=== PATIENT | female | born 1935 | race Caucasian/White ===

== ENCOUNTER 2017-12-04 07:32 | Observation (INO) ==
[2017-12-06 12:21] VITALS: BP 128/71
== END 2017-12-06 14:25 | disposition home or self-care (01) ==
LOC: N.4E 07:32 → N.GILAB 07:32 → N.4E 14:45
PROVIDERS: ADMIT Internal Medicine Gastroenterology; ATTEND Internal Medicine Gastroenterology

== ENCOUNTER 2017-12-21 08:59 | Inpatient (IN) ==
[2017-12-21] MEDS ORDERED: HALOPERIDOL 5 MG/ML AMP IM STA (09:30)
[2017-12-21] MEDS ORDERED: LORazepam 2 MG/1 ML VIAL ONE (09:31)
[2017-12-21] MEDS ORDERED: HALOPERIDOL 5 MG/ML AMP ONE (09:31)
[2017-12-21] MEDS ORDERED: SODIUM CHLORIDE 0.9% 500 ML IV STA (09:40)
[2017-12-21] MEDS ORDERED: HALOPERIDOL 5 MG/ML AMP IV STA (09:40)
[2017-12-21] MEDS ORDERED: LORazepam 2 MG/1 ML VIAL IV STA ×2 (09:40→10:00)
[2017-12-21 10:33] LABS: Basophils % 0.3 % (0.0-0.8); Eosinophils % 0.2 % (0.00-10.9); Hematocrit 37.1 VOL% (35.7-47.0); Hemoglobin 12.4 GM/DL (12.0-16.0); Immature Granulocytes % 0.5 %; Immature Granulocytes Absolute 0.06 #; Lymphocytes # 1.1 10*3/uL (1.4-4.0); Lymphocytes % 9.8 % (21.3-54.2); Mean Corpuscular HGB Conc 33.4 GM/DL (32-36); Mean Corpuscular Hemoglobin 29 PG (27-34); Mean Corpuscular Volume 87.5 FL (87-102); Monocytes # 0.9 10*3/uL (0.11-0.8); Monocytes % 7.7 % (1.7-12.7); Neutrophils # 9.4 10*3/uL (1.4-7.4); Neutrophils % 81.5 % (38.7-73.9); Platelet Count 232 T/CUMM (130-400); Red Blood Count 4.24 MC/CUMM (3.8-5.5); Red Cell Distribution Width 13.4 % (9.3-17.3); White Blood Count 11.6 T/CUMM (4-12)
[2017-12-21 10:36] LABS: ABG Base Excess -0.5 MMOL/L (-2.5-2.5); ABG Oxygen Saturation 98.9 % (95-100); ABG PCO2 35.1 MM HG (35-48); ABG PH 7.429 (7.35-7.45); ABG TCO2 20.6 MMOL/L (23-27); Allen Test Positive; Pt O2 Delivery Device Room Air
[2017-12-21] MEDS ORDERED: ZIPRASIDONE 20 MG/1 ML VIAL IM ONE ×2 (10:40→10:48)
[2017-12-21 10:43] LABS: INR 0.9
[2017-12-21 10:59] LABS: Ammonia 26 UMOL/L (11-32)
[2017-12-21 11:11] LABS: Lactic Acid 3.4 MMOL/L (0.4-2.0)
[2017-12-21 11:20] LABS: Apearance,Urine CLEAR (Clear); Bacteria,Urine Occasional /HPF (Few); Bilirubin,Urine Negative (Negative); Blood, Urine Negative (Negative); Glucose,Urine (UA) Negative (Negative); Granular Casts,Urine 11 /LPF (0-1); Hyaline Casts,Urine 12 /LPF (0-3); Ketones,Urine 20 mg/dL (Negative); Mucus,Urine Few /LPF (Occasional); Nitrite,Urine Negative (Negative); Protein,Urine 100 MG/DL; RBC,Urine 1 /HPF (0-4); Squamous Epithelial Cell,Urine Occasional /HPF (0-10); Urine Color Yellow (Yellow); Urine Urobilinogen < 2.0 EU/DL (0.2-1.0); WBC,Urine 1 /HPF (0-6)
[2017-12-21] MEDS ORDERED: PIPERACILLIN/TAZOBACTAM 3,375 MG in SODIUM CHLORIDE 0.9% 100 ML IV SCH (11:30)
[2017-12-21 12:14] LABS: Barbiturates Screen,Urine Negative (Negative); Benzodiazepines Screen,Urine Negative (Negative); Cannabinoid Screen,Urine Negative (Negative); Opiate Screen,Urine Negative (Negative); Phencyclidine Screen,Urine Negative (Negative)
[2017-12-21 12:20] LABS: Alanine Aminotransferase 17 U/L (13-56); Albumin 3.7 G/DL (3.4-5.0); Alkaline Phosphatase 44 U/L (45-117); Aspartate Amino Transferase 16 U/L (0-37); Blood Urea Nitrogen 16 MG/DL (7-18); Calcium 9.1 MG/DL (8.5-10.1); Glucose 190 MG/DL (74-106); Osmolality,Calculated 278.8 MOS/KG (273-304); Potassium 3.5 MMOL/L (3.5-5.1); Sodium 137 MMOL/L (136-145); Total Protein 8.1 G/DL (6.4-8.3)
[2017-12-21] MEDS ORDERED: ONDANSETRON 4 MG/2 ML VIAL IV PRN (13:43)
[2017-12-21 14:35] LABS: INR 0.9; PT Patient Result 9.9 SECS
[2017-12-21] MEDS ORDERED: ASPIRIN 325 MG TABLET PO STA (14:46)
[2017-12-21 15:04] LABS: Risk Ratio 3.78; Thyroid Stimulating Hormone 2.28 uIU/ml (0.358-3.74); VLDL CHOLESTEROL 27.2 MG/DL
[2017-12-21] MEDS: ENOXAPARIN 40 MG/0.4 ML SYRINGE SUBCUT SCH (16:11)
[2017-12-21] MEDS: SODIUM CHLORIDE 0.9% 1,000 ML IV SCH (16:11)
[2017-12-21 16:51] LABS: CKMB % 4.9 %
[2017-12-21] MEDS ORDERED: GLUCAGON 1 MG VIAL IM PRN ×2 (17:07)
[2017-12-21] MEDS ORDERED: DEXTROSE 50% 25 GM/50 ML VIAL IV PRN ×2 (17:07)
[2017-12-21] MEDS ORDERED: cefTRIAXone 2,000 MG in SYRINGE 1 EACH IV ONE (17:16)
[2017-12-21] MEDS ORDERED: VANCOMYCIN INJ 1,250 MG in SODIUM CHLORIDE 0.9% 250 ML IV ONE (17:16)
[2017-12-21] MEDS: INSULIN LISPRO 100 UNIT/ML SUBCUT SCH ×2 (17:26→20:04)
[2017-12-21] MEDS: AMPICILLIN INJ 2,000 MG in SODIUM CHLORIDE 0.9% 100 ML IV SCH ×2 (17:55→21:57)
[2017-12-21] MEDS ORDERED: INSULIN LISPRO 100 UNIT/ML SUBCUT SCH (18:00)
[2017-12-21 19:58] LABS: CKMB % 4.1 %
[2017-12-22 01:28] LABS: CKMB % 2.5 %
[2017-12-22] MEDS ORDERED: LORazepam 2 MG/1 ML VIAL IV ONE (01:30)
[2017-12-22] MEDS ORDERED: HALOPERIDOL 5 MG/ML AMP IV ONE (01:30)
[2017-12-22] MEDS: AMPICILLIN INJ 2,000 MG in SODIUM CHLORIDE 0.9% 100 ML IV SCH ×6 (02:14→21:39)
[2017-12-22] MEDS: SODIUM CHLORIDE 0.9% 1,000 ML IV SCH (06:03)
[2017-12-22 07:00] LABS: Basophils % 0.4 % (0.0-0.8); Eosinophils % 0.4 % (0.00-10.9); Hematocrit 31.5 VOL% (35.7-47.0); Hemoglobin 10.3 GM/DL (12.0-16.0); Immature Granulocytes % 0.6 %; Immature Granulocytes Absolute 0.05 #; Lymphocytes # 3.3 10*3/uL (1.4-4.0); Lymphocytes % 40.9 % (21.3-54.2); Mean Corpuscular HGB Conc 32.7 GM/DL (32-36); Mean Corpuscular Hemoglobin 29 PG (27-34); Mean Platelet Volume 10.5 FL (9.6-12.0); Monocytes % 12.5 % (1.7-12.7); Neutrophils # 3.6 10*3/uL (1.4-7.4); Neutrophils % 45.2 % (38.7-73.9); Platelet Count 224 T/CUMM (130-400); Red Blood Count 3.58 MC/CUMM (3.8-5.5); Red Cell Distribution Width 13.4 % (9.3-17.3)
[2017-12-22 07:27] LABS: Albumin 3.1 G/DL (3.4-5.0); Bilirubin,Total 0.9 MG/DL (0.2-1.0); Osmolality,Calculated 281.3 MOS/KG (273-304); Potassium 3.2 MMOL/L (3.5-5.1); Total Protein 6.4 G/DL (6.4-8.3)
[2017-12-22] MEDS: INSULIN LISPRO 100 UNIT/ML SUBCUT SCH ×4 (10:00→21:38)
[2017-12-22] MEDS ORDERED: SODIUM CHLORIDE 0.9% 1,000 ML IV ONE (10:10)
[2017-12-22] MEDS: SODIUM CHLOR 0.45% KCL 20 MEQ 20 MEQ/1,000 ML BAG IV SCH (11:47)
[2017-12-22 15:22] LABS: Basophils % 0.5 % (0.0-0.8); Eosinophils # 0.1 10*3/uL (0.0-0.87); Eosinophils % 1.2 % (0.00-10.9); Hematocrit 29.4 VOL% (35.7-47.0); Hemoglobin 9.7 GM/DL (12.0-16.0); Immature Granulocytes % 0.3 %; Immature Granulocytes Absolute 0.02 #; Lymphocytes # 2.4 10*3/uL (1.4-4.0); Lymphocytes % 36.6 % (21.3-54.2); Mean Corpuscular Hemoglobin 30 PG (27-34); Mean Corpuscular Volume 89.6 FL (87-102); Mean Platelet Volume 10.2 FL (9.6-12.0); Monocytes # 0.8 10*3/uL (0.11-0.8); Monocytes % 12.5 % (1.7-12.7); Neutrophils # 3.2 10*3/uL (1.4-7.4); Neutrophils % 48.9 % (38.7-73.9); Platelet Count 201 T/CUMM (130-400); Red Blood Count 3.28 MC/CUMM (3.8-5.5); Red Cell Distribution Width 13.4 % (9.3-17.3); White Blood Count 6.5 T/CUMM (4-12)
[2017-12-22 15:41] LABS: Albumin 2.8 G/DL (3.4-5.0); Bilirubin,Total 0.8 MG/DL (0.2-1.0); Calcium 7.7 MG/DL (8.5-10.1); Osmolality,Calculated 281.3 MOS/KG (273-304); Potassium 3.3 MMOL/L (3.5-5.1)
[2017-12-22 16:17] LABS: Glucose,CSF 56 MG/DL (40-70)
[2017-12-22 16:36] LABS: Appearance,CSF Clear; Red Blood Cell,CSF 8 C/CUMM; White Blood Cell,CSF 5 C/CUMM
[2017-12-22 16:42] LABS: Lymphocytes,CSF 83 %; Monocytes,CSF 17 %
[2017-12-23] MEDS: AMPICILLIN INJ 2,000 MG in SODIUM CHLORIDE 0.9% 100 ML IV SCH ×3 (01:06→09:13)
[2017-12-23] MEDS: INSULIN LISPRO 100 UNIT/ML SUBCUT SCH ×3 (09:11→21:32)
[2017-12-23] MEDS: SODIUM CHLOR 0.45% KCL 20 MEQ 20 MEQ/1,000 ML BAG IV SCH ×2 (09:13→21:33)
[2017-12-23] MEDS: ENOXAPARIN 40 MG/0.4 ML SYRINGE SUBCUT SCH (15:24)
[2017-12-24] MEDS: INSULIN LISPRO 100 UNIT/ML SUBCUT SCH ×4 (09:14→22:43)
[2017-12-24] MEDS: SODIUM CHLOR 0.45% KCL 20 MEQ 20 MEQ/1,000 ML BAG IV SCH (11:26)
[2017-12-24] MEDS: ENOXAPARIN 40 MG/0.4 ML SYRINGE SUBCUT SCH (14:51)
[2017-12-25] MEDS: SODIUM CHLOR 0.45% KCL 20 MEQ 20 MEQ/1,000 ML BAG IV SCH ×2 (00:48→14:21)
[2017-12-25 07:28] LABS: Basophils % 0.2 % (0.0-0.8); Eosinophils # 0.2 10*3/uL (0.0-0.87); Eosinophils % 1.6 % (0.00-10.9); Hematocrit 33.6 VOL% (35.7-47.0); Hemoglobin 11.9 GM/DL (12.0-16.0); Immature Granulocytes % 0.3 %; Immature Granulocytes Absolute 0.03 #; Lymphocytes # 2.6 10*3/uL (1.4-4.0); Lymphocytes % 28.6 % (21.3-54.2); Mean Corpuscular HGB Conc 35.4 GM/DL (32-36); Mean Corpuscular Hemoglobin 30 PG (27-34); Mean Corpuscular Volume 83.8 FL (87-102); Mean Platelet Volume 10.5 FL (9.6-12.0); Neutrophils # 5.3 10*3/uL (1.4-7.4); Neutrophils % 58.3 % (38.7-73.9); Platelet Count 246 T/CUMM (130-400); Red Blood Count 4.01 MC/CUMM (3.8-5.5); Red Cell Distribution Width 13.3 % (9.3-17.3); White Blood Count 9.2 T/CUMM (4-12)
[2017-12-25 07:53] LABS: Osmolality,Calculated 271.8 MOS/KG (273-304); Potassium 3.7 MMOL/L (3.5-5.1)
[2017-12-25] MEDS: ASPIRIN EC 81 MG TABLET PO SCH (09:58)
[2017-12-25] MEDS: LISINOPRIL/HCTZ 20-12.5 MG TABLET PO SCH (09:59)
[2017-12-25] MEDS: POLYETHYLENE GLYCOL POWDER 17 GM PACK PO SCH ×2 (10:00→20:53)
[2017-12-25] MEDS: INSULIN LISPRO 100 UNIT/ML SUBCUT SCH ×4 (10:00→21:03)
[2017-12-25] MEDS ORDERED: TUBERCULIN SKIN TEST 0.1 ML SYRINGE INTRADERM ONE (14:24)
[2017-12-25] MEDS: ENOXAPARIN 40 MG/0.4 ML SYRINGE SUBCUT SCH (14:49)
[2017-12-25] MEDS ORDERED: ACETAMINOPHEN 325 MG TABLET PO PRN (20:15)
[2017-12-25] MEDS ORDERED: GABAPENTIN 300 MG CAPSULE PO SCH (21:00)
[2017-12-26] MEDS: SODIUM CHLOR 0.45% KCL 20 MEQ 20 MEQ/1,000 ML BAG IV SCH (03:50)
[2017-12-26 07:13] VITALS: BP 154/87
[2017-12-26] MEDS: INSULIN LISPRO 100 UNIT/ML SUBCUT SCH (09:14)
[2017-12-26] MEDS: ASPIRIN EC 81 MG TABLET PO SCH (09:15)
[2017-12-26] MEDS: LISINOPRIL/HCTZ 20-12.5 MG TABLET PO SCH (09:15)
[2017-12-26] MEDS: POLYETHYLENE GLYCOL POWDER 17 GM PACK PO SCH (09:17)
[2017-12-26 11:10] LABS: VDRL Spinal Fluid Negative (Negative)
[2017-12-27 15:16] LABS: M. Tuberculosis PCR Result Negative (Negative); M. Tuberculosis PCR Source CSF
[2017-12-28 17:46] LABS: West Nile Virus Ab, IgG, CSF Negative (Negative); West Nile Virus Ab, IgM, CSF Negative (Negative)
== END 2017-12-26 10:30 | disposition swing bed (61) | DRG 880 ==
LOC: EDUNIT# → EDBD → N.ED 08:59 → N.EDINP 13:42 → SUATTDRO 13:42 → N.EDINP 14:55 → N.5E 15:33
PROVIDERS: ADMIT Internal Medicine; ATTEND Internal Medicine Geriatric Medicine

== ENCOUNTER 2018-01-09 15:09 | Inpatient (IN) ==
[2018-01-09] MEDS ORDERED: ONDANSETRON 4 MG/2 ML VIAL IV PRN (15:49)
[2018-01-09 18:58] LABS: Basophils % 0.3 % (0.0-0.8); Eosinophils % 0.4 % (0.00-10.9); Hematocrit 36.9 VOL% (35.7-47.0); Hemoglobin 12.7 GM/DL (12.0-16.0); Immature Granulocytes % 0.4 %; Immature Granulocytes Absolute 0.04 #; Mean Corpuscular HGB Conc 34.4 GM/DL (32-36); Mean Corpuscular Hemoglobin 30 PG (27-34); Mean Corpuscular Volume 86.6 FL (87-102); Mean Platelet Volume 10.1 FL (9.6-12.0); Monocytes # 0.9 10*3/uL (0.11-0.8); Monocytes % 8.9 % (1.7-12.7); Neutrophils # 6.6 10*3/uL (1.4-7.4); Platelet Count 346 T/CUMM (130-400); Red Blood Count 4.26 MC/CUMM (3.8-5.5); Red Cell Distribution Width 13.8 % (9.3-17.3); White Blood Count 10.6 T/CUMM (4-12)
[2018-01-09] MEDS ORDERED: DEXTROSE 50% 25 GM/50 ML VIAL IV PRN (19:22)
[2018-01-09] MEDS ORDERED: GLUCAGON 1 MG VIAL IM PRN (19:22)
[2018-01-09] MEDS ORDERED: BISACODYL 5 MG TABLET PO PRN (19:23)
[2018-01-09 19:24] LABS: Albumin 3.5 G/DL (3.4-5.0); Bilirubin,Total 0.6 MG/DL (0.2-1.0); Calcium 9.2 MG/DL (8.5-10.1); Potassium 3.6 MMOL/L (3.5-5.1); Total Protein 7.7 G/DL (6.4-8.3)
[2018-01-09] MEDS ORDERED: GABAPENTIN 300 MG CAPSULE PO SCH (21:00)
[2018-01-09] MEDS: SODIUM CHLORIDE 0.9% 1,000 ML IV SCH (21:25)
[2018-01-09] MEDS: ACETAMINOPHEN 325 MG TABLET PO PRN (21:26)
[2018-01-09] MEDS: POLYETHYLENE GLYCOL POWDER 17 GM PACK PO SCH (21:36)
[2018-01-09] MEDS: INSULIN LISPRO 100 UNIT/ML SUBCUT SCH (21:36)
[2018-01-09] MEDS: ENOXAPARIN 30 MG/0.3 ML SYRINGE SUBCUT SCH (21:38)
[2018-01-10 02:15] LABS: Basophils % 0.4 % (0.0-0.8); Eosinophils # 0.1 10*3/uL (0.0-0.87); Eosinophils % 0.7 % (0.00-10.9); Hematocrit 34.5 VOL% (35.7-47.0); Hemoglobin 11.5 GM/DL (12.0-16.0); Immature Granulocytes % 0.4 %; Immature Granulocytes Absolute 0.04 #; Lymphocytes # 3.5 10*3/uL (1.4-4.0); Lymphocytes % 32.3 % (21.3-54.2); Mean Corpuscular HGB Conc 33.3 GM/DL (32-36); Mean Corpuscular Hemoglobin 30 PG (27-34); Mean Corpuscular Volume 88.7 FL (87-102); Mean Platelet Volume 9.7 FL (9.6-12.0); Monocytes # 1.1 10*3/uL (0.11-0.8); Monocytes % 9.6 % (1.7-12.7); Neutrophils # 6.2 10*3/uL (1.4-7.4); Neutrophils % 56.6 % (38.7-73.9); Platelet Count 309 T/CUMM (130-400); Red Blood Count 3.89 MC/CUMM (3.8-5.5); Red Cell Distribution Width 13.8 % (9.3-17.3); White Blood Count 10.9 T/CUMM (4-12)
[2018-01-10 02:47] LABS: Calcium 8.6 MG/DL (8.5-10.1); Osmolality,Calculated 278.7 MOS/KG (273-304); Potassium 3.8 MMOL/L (3.5-5.1)
[2018-01-10 02:50] LABS: Risk Ratio 4.21; VLDL CHOLESTEROL 26.4 MG/DL
[2018-01-10] MEDS: INSULIN LISPRO 100 UNIT/ML SUBCUT SCH ×4 (08:16→21:37)
[2018-01-10] MEDS: PANTOPRAZOLE 40 MG TABLET PO SCH (09:04)
[2018-01-10] MEDS: ASPIRIN 325 MG TABLET PO SCH (09:04)
[2018-01-10] MEDS: POLYETHYLENE GLYCOL POWDER 17 GM PACK PO SCH ×2 (09:04→21:34)
[2018-01-10] MEDS: SODIUM CHLORIDE 0.9% 1,000 ML IV SCH ×2 (09:04→18:24)
[2018-01-10] MEDS: LISINOPRIL/HCTZ 20-12.5 MG TABLET PO SCH (09:04)
[2018-01-10] MEDS ORDERED: LORazepam 2 MG/1 ML VIAL IV ONE (11:14)
[2018-01-10] MEDS ORDERED: PHENYTOIN INJ 1,000 MG in SODIUM CHLORIDE 0.9% 100 ML IV ONE (15:31)
[2018-01-10] MEDS: CYANOCOBALAMIN 1000 MCG/1 ML VIAL IM SCH (15:45)
[2018-01-10] MEDS: IMMUNE GLOBULIN 10% 20 GM, IMMUNE GLOBULIN 10% 10 GM in PREMIX 1 EACH IV SCH (16:26)
[2018-01-10] MEDS: PHENYTOIN ER 100 MG CAPSULE PO SCH (21:34)
[2018-01-10] MEDS: ENOXAPARIN 30 MG/0.3 ML SYRINGE SUBCUT SCH (21:37)
[2018-01-11] MEDS: ZALEPLON 5 MG CAPSULE PO PRN (01:43)
[2018-01-11] MEDS: INSULIN LISPRO 100 UNIT/ML SUBCUT SCH ×4 (07:55→21:18)
[2018-01-11] MEDS: POLYETHYLENE GLYCOL POWDER 17 GM PACK PO SCH ×2 (09:48→21:31)
[2018-01-11] MEDS: ASPIRIN 325 MG TABLET PO SCH (09:50)
[2018-01-11] MEDS: PHENYTOIN ER 100 MG CAPSULE PO SCH ×3 (09:50→21:18)
[2018-01-11] MEDS: PANTOPRAZOLE 40 MG TABLET PO SCH (09:51)
[2018-01-11] MEDS: LISINOPRIL/HCTZ 20-12.5 MG TABLET PO SCH (09:52)
[2018-01-11] MEDS: CYANOCOBALAMIN 1000 MCG/1 ML VIAL IM SCH (09:54)
[2018-01-11] MEDS: IMMUNE GLOBULIN 10% 20 GM, IMMUNE GLOBULIN 10% 10 GM in PREMIX 1 EACH IV SCH (15:47)
[2018-01-11] MEDS: ENOXAPARIN 30 MG/0.3 ML SYRINGE SUBCUT SCH (21:17)
[2018-01-12 01:41] LABS: Apearance,Urine CLEAR (Clear); Bacteria,Urine Occasional /HPF (Few); Bilirubin,Urine Negative (Negative); Blood, Urine Negative (Negative); Glucose,Urine (UA) Negative (Negative); Ketones,Urine Negative (Negative); Nitrite,Urine Negative (Negative); Protein,Urine Negative; Urine Color Straw (Yellow); Urine Specific Gravity 1.005 (1.001-1.035); Urine Urobilinogen < 2.0 EU/DL (0.2-1.0); WBC,Urine 1 /HPF (0-6)
[2018-01-12] MEDS: INSULIN LISPRO 100 UNIT/ML SUBCUT SCH ×4 (08:01→20:59)
[2018-01-12] MEDS: LISINOPRIL/HCTZ 20-12.5 MG TABLET PO SCH (09:18)
[2018-01-12] MEDS: PANTOPRAZOLE 40 MG TABLET PO SCH (09:18)
[2018-01-12] MEDS: PHENYTOIN ER 100 MG CAPSULE PO SCH ×3 (09:19→20:53)
[2018-01-12] MEDS: ASPIRIN 325 MG TABLET PO SCH (09:20)
[2018-01-12] MEDS: POLYETHYLENE GLYCOL POWDER 17 GM PACK PO SCH ×2 (09:21→20:59)
[2018-01-12] MEDS ORDERED: LORazepam 2 MG/1 ML VIAL IV ONE (10:46)
[2018-01-12] MEDS: CYANOCOBALAMIN 500 MCG TABLET PO SCH (10:58)
[2018-01-12] MEDS: CYANOCOBALAMIN 1000 MCG/1 ML VIAL IM SCH (11:05)
[2018-01-12] MEDS ORDERED: HALOPERIDOL 5 MG/ML AMP IM ONE (12:20)
[2018-01-12] MEDS: IMMUNE GLOBULIN 10% 20 GM, IMMUNE GLOBULIN 10% 10 GM in PREMIX 1 EACH IV SCH (14:25)
[2018-01-12] MEDS ORDERED: OLANZapine 10 MG VIAL IM ONE ×2 (18:00→20:30)
[2018-01-12] MEDS: ENOXAPARIN 30 MG/0.3 ML SYRINGE SUBCUT SCH (20:53)
[2018-01-12] MEDS: ZALEPLON 5 MG CAPSULE PO PRN (22:39)
[2018-01-13] MEDS ORDERED: ZIPRASIDONE 20 MG/1 ML VIAL IM ONE (02:34)
[2018-01-13] MEDS: INSULIN LISPRO 100 UNIT/ML SUBCUT SCH ×4 (08:45→22:53)
[2018-01-13] MEDS: CYANOCOBALAMIN 500 MCG TABLET PO SCH (09:47)
[2018-01-13] MEDS: LISINOPRIL/HCTZ 20-12.5 MG TABLET PO SCH (09:47)
[2018-01-13] MEDS: PANTOPRAZOLE 40 MG TABLET PO SCH (09:48)
[2018-01-13] MEDS: POLYETHYLENE GLYCOL POWDER 17 GM PACK PO SCH ×2 (09:48→22:54)
[2018-01-13] MEDS: PHENYTOIN ER 100 MG CAPSULE PO SCH ×3 (09:48→22:53)
[2018-01-13] MEDS: ASPIRIN 325 MG TABLET PO SCH (09:48)
[2018-01-13] MEDS ORDERED: LORazepam 2 MG/1 ML VIAL IV ONE (12:04)
[2018-01-13] MEDS: ENOXAPARIN 30 MG/0.3 ML SYRINGE SUBCUT SCH (21:22)
[2018-01-14 05:03] LABS: Basophils % 0.5 % (0.0-0.8); Eosinophils # 0.2 10*3/uL (0.0-0.87); Eosinophils % 2.8 % (0.00-10.9); Hemoglobin 12.4 GM/DL (12.0-16.0); Immature Granulocytes % 0.3 %; Immature Granulocytes Absolute 0.03 #; Lymphocytes # 2.9 10*3/uL (1.4-4.0); Lymphocytes % 33.4 % (21.3-54.2); Mean Corpuscular HGB Conc 33.5 GM/DL (32-36); Mean Corpuscular Hemoglobin 30 PG (27-34); Mean Corpuscular Volume 88.3 FL (87-102); Mean Platelet Volume 9.5 FL (9.6-12.0); Monocytes # 0.8 10*3/uL (0.11-0.8); Monocytes % 9.6 % (1.7-12.7); Neutrophils # 4.7 10*3/uL (1.4-7.4); Neutrophils % 53.4 % (38.7-73.9); Platelet Count 215 T/CUMM (130-400); Red Blood Count 4.19 MC/CUMM (3.8-5.5); Red Cell Distribution Width 14.3 % (9.3-17.3); White Blood Count 8.7 T/CUMM (4-12)
[2018-01-14 05:28] LABS: Albumin 3.2 G/DL (3.4-5.0); Bilirubin,Total 0.6 MG/DL (0.2-1.0); Calcium 8.8 MG/DL (8.5-10.1); Osmolality,Calculated 287.4 MOS/KG (273-304); Potassium 3.7 MMOL/L (3.5-5.1); Total Protein 8.3 G/DL (6.4-8.3)
[2018-01-14 07:56] LABS: INR 0.9
[2018-01-14] MEDS: INSULIN LISPRO 100 UNIT/ML SUBCUT SCH ×4 (08:10→21:01)
[2018-01-14] MEDS ORDERED: diphenhydrAMINE 50 MG/1 ML VIAL ONE (09:53)
[2018-01-14 10:45] LABS: Glucose,CSF 59 MG/DL (40-70)
[2018-01-14 10:57] LABS: Appearance,CSF Clear; Lymphocytes,CSF 92 %; Monocytes,CSF 8 %; Red Blood Cell,CSF 65 C/CUMM; White Blood Cell,CSF 31 C/CUMM
[2018-01-14] MEDS ORDERED: MORPHINE 4 MG/1 ML VIAL IV ONE (11:29)
[2018-01-14] MEDS: POLYETHYLENE GLYCOL POWDER 17 GM PACK PO SCH ×2 (15:41→20:58)
[2018-01-14] MEDS: PHENYTOIN ER 100 MG CAPSULE PO SCH ×3 (15:54→20:58)
[2018-01-14] MEDS: CYANOCOBALAMIN 500 MCG TABLET PO SCH (15:54)
[2018-01-14] MEDS: LISINOPRIL/HCTZ 20-12.5 MG TABLET PO SCH (15:54)
[2018-01-14] MEDS: PANTOPRAZOLE 40 MG TABLET PO SCH (15:55)
[2018-01-14] MEDS: ASPIRIN 325 MG TABLET PO SCH (15:55)
[2018-01-14] MEDS: ACYCLOVIR INJ 750 MG in SODIUM CHLORIDE 0.9% 250 ML IV SCH (17:41)
[2018-01-14] MEDS: ENOXAPARIN 30 MG/0.3 ML SYRINGE SUBCUT SCH (20:59)
[2018-01-14] MEDS: ZALEPLON 5 MG CAPSULE PO PRN (20:59)
[2018-01-15 05:34] LABS: Basophils % 0.4 % (0.0-0.8); Eosinophils # 0.3 10*3/uL (0.0-0.87); Eosinophils % 3.6 % (0.00-10.9); Hematocrit 36.2 VOL% (35.7-47.0); Hemoglobin 12.7 GM/DL (12.0-16.0); Immature Granulocytes % 0.3 %; Immature Granulocytes Absolute 0.03 #; Lymphocytes # 3.1 10*3/uL (1.4-4.0); Lymphocytes % 33.9 % (21.3-54.2); Mean Corpuscular HGB Conc 35.1 GM/DL (32-36); Mean Corpuscular Hemoglobin 30 PG (27-34); Mean Platelet Volume 10.5 FL (9.6-12.0); Monocytes # 0.9 10*3/uL (0.11-0.8); Monocytes % 9.3 % (1.7-12.7); Neutrophils # 4.8 10*3/uL (1.4-7.4); Neutrophils % 52.5 % (38.7-73.9); Platelet Count 235 T/CUMM (130-400); Red Blood Count 4.21 MC/CUMM (3.8-5.5); White Blood Count 9.2 T/CUMM (4-12)
[2018-01-15 05:43] LABS: Calcium 8.9 MG/DL (8.5-10.1); Osmolality,Calculated 278.8 MOS/KG (273-304); Potassium 3.5 MMOL/L (3.5-5.1)
[2018-01-15] MEDS: ACYCLOVIR INJ 750 MG in SODIUM CHLORIDE 0.9% 250 ML IV SCH ×2 (05:50→14:56)
[2018-01-15] MEDS: INSULIN LISPRO 100 UNIT/ML SUBCUT SCH ×4 (07:58→21:02)
[2018-01-15] MEDS: ASPIRIN 325 MG TABLET PO SCH (08:18)
[2018-01-15] MEDS: PHENYTOIN ER 100 MG CAPSULE PO SCH ×3 (08:18→21:01)
[2018-01-15] MEDS: PANTOPRAZOLE 40 MG TABLET PO SCH (08:18)
[2018-01-15] MEDS: CYANOCOBALAMIN 500 MCG TABLET PO SCH (08:18)
[2018-01-15] MEDS: LISINOPRIL/HCTZ 20-12.5 MG TABLET PO SCH (08:18)
[2018-01-15] MEDS: POLYETHYLENE GLYCOL POWDER 17 GM PACK PO SCH ×2 (08:18→21:00)
[2018-01-15] MEDS: ACETAMINOPHEN 325 MG TABLET PO PRN (11:21)
[2018-01-15] MEDS: ENOXAPARIN 30 MG/0.3 ML SYRINGE SUBCUT SCH (21:02)
[2018-01-16 01:54] LABS: Basophils % 0.3 % (0.0-0.8); Eosinophils # 0.2 10*3/uL (0.0-0.87); Hematocrit 32.2 VOL% (35.7-47.0); Immature Granulocytes % 0.3 %; Immature Granulocytes Absolute 0.02 #; Lymphocytes # 2.1 10*3/uL (1.4-4.0); Lymphocytes % 28.9 % (21.3-54.2); Mean Corpuscular HGB Conc 34.2 GM/DL (32-36); Mean Corpuscular Hemoglobin 30 PG (27-34); Mean Corpuscular Volume 87.3 FL (87-102); Mean Platelet Volume 9.9 FL (9.6-12.0); Monocytes % 13.6 % (1.7-12.7); Neutrophils # 3.9 10*3/uL (1.4-7.4); Neutrophils % 53.9 % (38.7-73.9); Platelet Count 186 T/CUMM (130-400); Red Blood Count 3.69 MC/CUMM (3.8-5.5); Red Cell Distribution Width 13.8 % (9.3-17.3); White Blood Count 7.3 T/CUMM (4-12)
[2018-01-16 02:00] LABS: Calcium 8.6 MG/DL (8.5-10.1); Osmolality,Calculated 283.5 MOS/KG (273-304); Potassium 3.7 MMOL/L (3.5-5.1)
[2018-01-16] MEDS: ACYCLOVIR INJ 750 MG in SODIUM CHLORIDE 0.9% 250 ML IV SCH ×3 (03:35→21:30)
[2018-01-16] MEDS: INSULIN LISPRO 100 UNIT/ML SUBCUT SCH ×4 (07:56→20:27)
[2018-01-16] MEDS: ASPIRIN 325 MG TABLET PO SCH (09:02)
[2018-01-16] MEDS: PANTOPRAZOLE 40 MG TABLET PO SCH (09:03)
[2018-01-16] MEDS: PHENYTOIN ER 100 MG CAPSULE PO SCH ×3 (09:04→20:27)
[2018-01-16] MEDS: CYANOCOBALAMIN 500 MCG TABLET PO SCH (09:05)
[2018-01-16] MEDS: LISINOPRIL/HCTZ 20-12.5 MG TABLET PO SCH (09:06)
[2018-01-16] MEDS: POLYETHYLENE GLYCOL POWDER 17 GM PACK PO SCH ×2 (09:09→20:32)
[2018-01-16 11:31] LABS: VDRL Spinal Fluid Negative (Negative)
[2018-01-16] MEDS: ENOXAPARIN 30 MG/0.3 ML SYRINGE SUBCUT SCH (20:27)
[2018-01-16] MEDS: ZALEPLON 5 MG CAPSULE PO PRN (21:35)
[2018-01-17] MEDS: ACYCLOVIR INJ 750 MG in SODIUM CHLORIDE 0.9% 250 ML IV SCH ×2 (05:08→16:25)
[2018-01-17] MEDS: INSULIN LISPRO 100 UNIT/ML SUBCUT SCH ×2 (08:45→12:44)
[2018-01-17] MEDS: POLYETHYLENE GLYCOL POWDER 17 GM PACK PO SCH (10:35)
[2018-01-17] MEDS: LISINOPRIL/HCTZ 20-12.5 MG TABLET PO SCH (10:37)
[2018-01-17] MEDS: PHENYTOIN ER 100 MG CAPSULE PO SCH ×2 (10:37→15:13)
[2018-01-17] MEDS: CYANOCOBALAMIN 500 MCG TABLET PO SCH (10:38)
[2018-01-17] MEDS: ASPIRIN 325 MG TABLET PO SCH (10:39)
[2018-01-17] MEDS: PANTOPRAZOLE 40 MG TABLET PO SCH (10:39)
[2018-01-17] MEDS ORDERED: ZINC OXIDE 16% PASTE 57 GM TUBE TOP SCH (11:00)
[2018-01-17 12:37] VITALS: BP 128/62
[2018-01-17 14:51] LABS: M. Tuberculosis PCR Result Negative (Negative); M. Tuberculosis PCR Source CSF
[2018-01-18 21:26] LABS: West Nile Virus Ab, IgG, CSF Negative (Negative); West Nile Virus Ab, IgM, CSF Negative (Negative)
[2018-01-24 12:30] LABS: AChR Ganglionic Neuronal Ab, S 0 nmol/L (<=0.02); CRMP-5-IgG, S Negative titer (<1:240); Striational (Striated Muscle) Negative titer (<1:120)
[2018-01-31 13:12] LABS: GAD65 Ab Assay, S 0 nmol/L (<= 0.02)
== END 2018-01-17 16:00 | DRG 98 ==
LOC: SUATTDRO 17:26 → N.4E 17:26
PROVIDERS: ADMIT Emergency Medicine; ATTEND Internal Medicine

== ENCOUNTER 2018-10-31 14:52 | Observation (INO) ==
[2018-10-31 15:39] LABS: Basophils % 0.3 % (0.0-0.8); Eosinophils # 0.5 10*3/uL (0.0-0.87); Eosinophils % 4.9 % (0.00-10.9); Hematocrit 31.9 VOL% (35.7-47.0); Hemoglobin 9.4 GM/DL (12.0-16.0); Immature Granulocytes % 0.4 %; Immature Granulocytes Absolute 0.04 #; Lymphocytes # 3.3 10*3/uL (1.4-4.0); Lymphocytes % 32.2 % (21.3-54.2); Mean Corpuscular HGB Conc 29.5 GM/DL (32-36); Mean Corpuscular Hemoglobin 23 PG (27-34); Mean Corpuscular Volume 78.8 FL (87-102); Mean Platelet Volume 9.2 FL (9.6-12.0); Monocytes # 1.1 10*3/uL (0.11-0.8); Monocytes % 10.1 % (1.7-12.7); Neutrophils # 5.4 10*3/uL (1.4-7.4); Neutrophils % 52.1 % (38.7-73.9); Platelet Count 383 T/CUMM (130-400); Red Blood Count 4.05 MC/CUMM (3.8-5.5); Red Cell Distribution Width 15.1 % (9.3-17.3); White Blood Count 10.4 T/CUMM (4-12)
[2018-10-31] MEDS ORDERED: ONDANSETRON 4 MG/2 ML VIAL IV ONE (16:01)
[2018-10-31] MEDS ORDERED: SODIUM CHLORIDE 0.9% 500 ML IV STA (16:01)
[2018-10-31 16:02] LABS: Alanine Aminotransferase 18 U/L (13-56); Alkaline Phosphatase 69 U/L (45-117); Aspartate Amino Transferase 14 U/L (0-37); Bilirubin,Total < 0.39 MG/DL (0.2-1.0); Blood Urea Nitrogen 13 MG/DL (7-18); Calcium 8.6 MG/DL (8.5-10.1); Glucose 104 MG/DL (74-106); Osmolality,Calculated 274.7 MOS/KG (273-304); Sodium 138 MMOL/L (136-145)
[2018-10-31 16:50] LABS: Apearance,Urine CLEAR (Clear); Bilirubin,Urine Negative (Negative); Blood, Urine Negative (Negative); Glucose,Urine (UA) Negative (Negative); Ketones,Urine Negative (Negative); Mucus,Urine Occasional /LPF (Occasional); Nitrite,Urine Negative (Negative); Protein,Urine Negative; Urine Color Yellow (Yellow); Urine Specific Gravity 1.019 (1.001-1.035); Urine Urobilinogen < 2.0 EU/DL (0.2-1.0); WBC,Urine 1 /HPF (0-6)
[2018-10-31] MEDS ORDERED: PROMETHAZINE 25 MG/1 ML VIAL IM PRN ×2 (16:51→17:53)
[2018-10-31] MEDS ORDERED: ONDANSETRON 4 MG/2 ML VIAL IV PRN (16:51)
[2018-10-31] MEDS ORDERED: DEXTROSE 50% 25 GM/50 ML VIAL IV PRN (17:34)
[2018-10-31] MEDS ORDERED: GLUCAGON 1 MG VIAL IM PRN (17:34)
[2018-10-31] MEDS ORDERED: SODIUM PHOSPHATE ENEMA 133 ML BOTTLE RECTAL STA (17:34)
[2018-10-31] MEDS: SODIUM CHLORIDE 0.45% 1,000 ML IV SCH (17:37)
[2018-10-31 18:25] LABS: Risk Ratio 3.81; Thyroid Stimulating Hormone 1.84 uIU/ml (0.358-3.74); VLDL CHOLESTEROL 25.6 MG/DL
[2018-10-31] MEDS: PHENYTOIN 100 MG/2 ML VIAL IV SCH (18:35)
[2018-11-01] MEDS: PHENYTOIN 100 MG/2 ML VIAL IV SCH ×2 (02:49→08:43)
[2018-11-01 04:53] LABS: Basophils % 0.3 % (0.0-0.8); Eosinophils # 0.6 10*3/uL (0.0-0.87); Eosinophils % 6.4 % (0.00-10.9); Hematocrit 28.7 VOL% (35.7-47.0); Hemoglobin 8.7 GM/DL (12.0-16.0); Immature Granulocytes % 0.2 %; Immature Granulocytes Absolute 0.02 #; Lymphocytes # 2.3 10*3/uL (1.4-4.0); Lymphocytes % 23.9 % (21.3-54.2); Mean Corpuscular HGB Conc 30.3 GM/DL (32-36); Mean Corpuscular Hemoglobin 24 PG (27-34); Mean Corpuscular Volume 78.2 FL (87-102); Monocytes # 1.1 10*3/uL (0.11-0.8); Monocytes % 11.9 % (1.7-12.7); Neutrophils # 5.5 10*3/uL (1.4-7.4); Neutrophils % 57.3 % (38.7-73.9); Platelet Count 317 T/CUMM (130-400); Red Blood Count 3.67 MC/CUMM (3.8-5.5); Red Cell Distribution Width 15.2 % (9.3-17.3); White Blood Count 9.6 T/CUMM (4-12)
[2018-11-01 04:55] LABS: Alanine Aminotransferase 16 U/L (13-56); Albumin 2.5 G/DL (3.4-5.0); Alkaline Phosphatase 58 U/L (45-117); Aspartate Amino Transferase 16 U/L (0-37); Bilirubin,Total < 0.39 MG/DL (0.2-1.0); Blood Urea Nitrogen 11 MG/DL (7-18); Calcium 7.9 MG/DL (8.5-10.1); Glucose 98 MG/DL (74-106); Osmolality,Calculated 271.8 MOS/KG (273-304); Potassium 4.2 MMOL/L (3.5-5.1); Sodium 137 MMOL/L (136-145); Total Protein 6.9 G/DL (6.4-8.3)
[2018-11-01] MEDS: SODIUM CHLORIDE 0.45% 1,000 ML IV SCH (06:33)
[2018-11-01] MEDS ORDERED: LACTATED RINGERS 500 ML IV ONE (09:45)
[2018-11-01] MEDS ORDERED: fentaNYL 100 MCG/2 ML VIAL ONE (10:39)
[2018-11-01] MEDS ORDERED: ePHEDrine 50 MG/ML AMP ONE (12:04)
[2018-11-01] MEDS ORDERED: SEVOFLURANE 1 UNIT/15 MINUTE INH ONE (12:05)
[2018-11-01] MEDS ORDERED: diphenhydrAMINE 50 MG/1 ML VIAL ONE (12:30)
[2018-11-01] MEDS ORDERED: PHENYLEPHRINE 1 MG/10 ML SYRINGE IV ONE (12:30)
[2018-11-01] MEDS ORDERED: DEXAMETHASONE 4 MG/1 ML VIAL ONE (12:30)
[2018-11-01] MEDS ORDERED: GLYCOPYRROLATE 0.4 MG/2 ML VIAL ONE (12:30)
[2018-11-01] MEDS ORDERED: SUCCINYLCHOLINE 200 MG/10 ML VIAL ONE (12:30)
[2018-11-01] MEDS ORDERED: PROPOFOL 200 MG/20 ML VIAL IV ONE (12:30)
[2018-11-01] MEDS ORDERED: ROCURONIUM 100 MG/10 ML VIAL IV ONE (12:30)
[2018-11-01] MEDS ORDERED: LIDOCAINE 2% 5 ML VIAL ONE (12:30)
[2018-11-01] MEDS ORDERED: ONDANSETRON 4 MG/2 ML VIAL ONE (12:30)
[2018-11-01] MEDS: PHENYTOIN IV SCH (16:58)
[2018-11-01] MEDS: SODIUM CHLORIDE 0.9% IV SCH (16:58)
[2018-11-01] MEDS ORDERED: PHENYTOIN 100 MG/2 ML VIAL IV SCH (17:00)
[2018-11-01] MEDS ORDERED: IBUPROFEN 800 MG TABLET PO ONE (17:33)
[2018-11-02] MEDS: PHENYTOIN IV SCH ×2 (00:49→09:07)
[2018-11-02] MEDS: SODIUM CHLORIDE 0.9% IV SCH ×2 (00:49→09:07)
[2018-11-02 06:35] LABS: Basophils % 0.2 % (0.0-0.8); Eosinophils # 0.4 10*3/uL (0.0-0.87); Eosinophils % 3.8 % (0.00-10.9); Hematocrit 29.6 VOL% (35.7-47.0); Hemoglobin 8.9 GM/DL (12.0-16.0); Immature Granulocytes % 0.5 %; Immature Granulocytes Absolute 0.05 #; Lymphocytes % 19.1 % (21.3-54.2); Mean Corpuscular HGB Conc 30.1 GM/DL (32-36); Mean Corpuscular Hemoglobin 24 PG (27-34); Mean Corpuscular Volume 78.5 FL (87-102); Mean Platelet Volume 9.6 FL (9.6-12.0); Monocytes # 1.1 10*3/uL (0.11-0.8); Monocytes % 10.1 % (1.7-12.7); Neutrophils % 66.3 % (38.7-73.9); Platelet Count 312 T/CUMM (130-400); Red Blood Count 3.77 MC/CUMM (3.8-5.5); Red Cell Distribution Width 15.2 % (9.3-17.3); White Blood Count 10.6 T/CUMM (4-12)
[2018-11-02 06:49] LABS: Alanine Aminotransferase 16 U/L (13-56); Albumin 2.6 G/DL (3.4-5.0); Alkaline Phosphatase 63 U/L (45-117); Aspartate Amino Transferase 12 U/L (0-37); Bilirubin,Total < 0.39 MG/DL (0.2-1.0); Blood Urea Nitrogen 13 MG/DL (7-18); Calcium 8.1 MG/DL (8.5-10.1); Glucose 119 MG/DL (74-106); Osmolality,Calculated 268.2 MOS/KG (273-304); Potassium 3.8 MMOL/L (3.5-5.1); Sodium 134 MMOL/L (136-145); Total Protein 6.8 G/DL (6.4-8.3)
[2018-11-02] MEDS ORDERED: LINACLOTIDE 145 MCG CAPSULE PO SCH (07:30)
[2018-11-02] MEDS: SODIUM CHLORIDE 0.45% 1,000 ML IV SCH ×2 (07:36→07:59)
[2018-11-02] MEDS ORDERED: SUCRALFATE 1 GM/10 ML UDCUP PO SCH (11:30)
[2018-11-02 12:29] VITALS: BP 116/59
== END 2018-11-02 13:48 | disposition home or self-care (01) ==
LOC: N.ED 14:52 → N.EDINP 14:52 → N.5E 17:53
PROVIDERS: ADMIT Internal Medicine; ATTEND Internal Medicine